=== PATIENT | female | born 1980 | race Two or more races ===

== ENCOUNTER 2025-05-08 08:14 | Emergency (ER) | payer BC ==
[~2025-05-08] VITALS: Ht 160 cm; Wt 86.1 kg
--- NOTE | 2025-05-08 09:01 | ED.PDOC ---
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 COMMERCIAL History Family History Family History: Reviewed,noncontributory to illness, No family hx of Cancer, No family hx of DM, No family hx of Heart tania, No family hx of HTN, No family hx ofKidney tania, No family hx of Liver tania, No family hx of Lung tania, No family hx of Stroke Social History Smoker: Non-Smoker Alcohol: Denies ETOH Use Drugs: Denies Drug Use Lives In: Home Constitutional: denies: chills, diaphoresis, fatigue, fever, malaise, sweats, weakness, others EENTM: denies: blurred vision, double vision, ear bleeding, ear discharge, ear drainage, ear pain, ear ringing, eye pain, eye redness, hearing loss, mouth pain, mouth swelling, nasal discharge, nose bleeding, nose congestion, nose pain, photophobia, tearing, throat pain, throat swelling, voice changes, others Respiratory: denies: cough, hemoptysis, orthopnea, SOB at rest, shortness of b reath, SOB with excertion, stridor, wheezing, others Cardiovascular: denies: chest pain, dizzy spells, diaphoresis, Dyspnea on exertion, edema, irregular heart beat, left arm pain, lightheadedness, palpitations, PND, syncope, others Gastrointestinal: denies: abdomen distended, abdominal pain, blood streaked bowels, constipated, diarrhea, dysphagia, difficulty swallowing, hematemesis, melena, nausea, poor appetite, poor fluid intake, rectal bleeding, rectal pain, vomiting, others Genitourinary: denies: abnormal vagina bleeding, burning, dyspareunia, dysuria, flank pain, frequency, hematuria, incontinence, pain, , vagina discharge, urgency, others Neurological: denies: dizziness, fainting, headache, left sided numbness, left sided weakness, numbness, paresthesia, pre-existing deficit, right sided numbness, right sided weakness, seizure, speech problems, tingling, tremors, weakness, others Musculoskeletal: reports: muscle pain, neck pain; denies: back pain, gout, joint pain, joint swelling, muscle stiffness, others Integumetry: denies: bruises, change in color, change in hair/nails, dryness, laceration, lesions, lumps, rash, wounds, others Allergic/Immunocompromised: denies: Difficulty Healing, Frequent Infections, Hives, Itching, others Hematologic/Lymphatic: denies: anemia, blood clots, easy bleeding, easy bruising, swollen glands, others Endocrine: denies: excessive hunger, excessive sweating, excessive thirst, excessive urination, flushing, intolerance to cold, intolerance to heat, unexplained weight gain, unexplained weight loss, others Psychiatric: denies: anxiety, bipolar disorder, depression, hopeless, panic disorder, schizophrenia, sleepless, suicidal, others All Other Systems: Reviewed and Negative Was a procedure done? Was a procedure done?: No Back Pain Differential Dx Differential Diagnosis: Fracture, Musculoskeletal Pain, Strain X-Ray, Labs, Meds, VS Vital Signs Date Time Temp Pulse Resp B/P (MAP) Pulse Ox O2 Delivery O2 Flow Rate FiO2 05/08/25 08:28 97.8 85 17 152/90 (110) 95 97.8 X-Ray, Labs, Meds, VS Comment EXTERNAL MEDICAL RECORDS: NONE INDEPENDENT HISTORIANS: NONE SOCIAL DETERMINANTS OF HEALTH: NONE LABS ORDERED: NONE REVIEWED AND INTERPRETED RESULTS: NONE IMAGING ORDERED: NONE TREATMENTS ORDERED: NONE PATIENT'S CASE AND RESULTS HAVE BEEN DISCUSSED WITH THE ED ATTENDING PHYSICIAN AND THEY AGREE WITH MY PLAN OF CARE. I HAVE DISCUSSED IMAGING AND LAB RESULTS WITH THE PATIENT AND HAVE INSTRUCTED THE PATIENT TO FOLLOW UP WITH THEIR PCP IN 1-2 DAYS. THE PATIENT FULLY UNDERSTANDS THEIR RESULTS AND ARE AWARE THEY NEED TO FOLLOW UP WITH THEIR PCP FOR FURTHER EVALUATION IF THEIR SYMPTOMS PERSIST. Images Reviewed?: Images reviewed and evaluated by me Reevaluation 1ST: Improved Patient Education/Counseling: Diagnosis, Treatment, Need For Follow Up Family Education/Counseling: Diagnosis, Treatment, Need For Follow Up Medical Screening: No EMC Exist At This Time SEPSIS Sepsis Screen Date sepsis recognized/suspect: May 08, 2025 Time Sepsis recognized/suspect: 08 Recent Procedure: No On Antibiotic Therapy: No Respiratory Rate >20: No Heart Rate >90: No Temp<36 C (96.8 F) or >38.3 C: No SBP <90 or MAP <65 mmHG: No New Acute Mental Status Change: No Is the patient on CPAP, BIPAP,: No Vital Signs Date Time Temp Pulse Resp B/P (MAP) Pulse Ox O2 Delivery O2 Flow Rate FiO2 05/08/25 08:28 97.8 85 17 152/90 (110) 95 97.8 Critical Care Note Critical Care Time?: No Stability Stability form required: No Heart Score Heart Score: Heart Score Response (Comments) Value History N/A 0 EKG N/A 0 Age N/A 0 Risk Factors N/A 0 Troponin N/A 0 Total 0 I personally scribed for HAYLEY LEIVA ([email or web address]) on 05/08/25 at 09:00. Electronically submitted by Susie Quintana ([employer]). I personally scribed for HAYLEY LEIVA ([email or web address]) on 05/08/25 at 09:05. Electronically submitted by Susie Quintana ([employer]). HAYLEY LEIVA May 08, 2025 09:00
[2025-05-08] MEDS ORDERED: NAPR-746 PO (09:07)
[2025-05-08] MEDS ORDERED: CEPH500C PO (09:07)
--- NOTE | 2025-05-08 09:16 | ED.PDOC ---
Eye-HPI HPI Comments A 44 YEAR-OLD FEMALE PRESENTS TO THE ED WITH A CHIEF COMPLAINT OF RIGHT SIDED NECK PAIN OF X2-3 DAYS AGO. PATIENT REPORTS THAT PAIN IS A "SHOOTING" PAIN, "SHARP", WITH PAIN UPON PALPATION. PATIENT HAS NO FURTHER SYMPTOMS AT THIS TIME AND OTHERWISE DENIES VISION LOSS, DIFFICULTY SWALLOWING, FEVER, OR N/V. PATIENT IS ALERT, ORIENTED X 4, AND HAS STEADY GAIT. Chief Complaint: Neck Pain Time Seen by MD: 09:06 Primary Care Provider: GENERAL Reviewed Notes: Nurses Notes, Medications, Allergies Allergies: Coded Allergies: Erythromycin (Verified Allergy, Unknown, 05/08/25) Home Meds Active Scripts Naproxen (Naproxen) 500 Mg Tab, 500 MG PO BID, #30 TAB Prov:HAYLEY LEIVA 05/08/25 Cephalexin Monohydrate (Cephalexin) 500 Mg Cap, 2 CAP PO BID, #32 CAP Prov:HAYLEY LEIVA 05/08/25 Information Source: Patient Mode of Arrival: Ambulatory Timing: Days (X2-3) Duration: Since onset, Days Prehospital treatment: None Quality: Pain Lids: Normal Conjunctiva: Normal Cornea: Normal Pupils: Normal EOM: Normal Fundus: Normal Slit lamp exam: Normal Anterior chamber: Normal Mouth Location: Pharynx Mouth: Right (RIGHT LYMPH NODE SWELLING ), Normal Nose: Normal Sinuses: Normal Oropharynx: Normal Onset: Spontaneous Associated signs and symptoms: Other (RIGHT SIDED PAIN AND SWELLING TO THE LYMPH NODES ) Past Medical History PAST MEDICAL HISTORY: High Lipids, HTN, Thyroid Surgical History: Denies all surgeries 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 History Family History Family History: Reviewed,noncontributory to illness, No family hx of Cancer, No family hx of DM, No family hx of Heart tania, No family hx of HTN, No family hx ofKidney tania, No family hx of Liver tania, No family hx of Lung tania, No family hx of Stroke Social History Smoker: Non-Smoker Alcohol: Denies ETOH Use Drugs: Denies Drug Use Lives In: Home Constitutional: denies: chills, diaphoresis, fatigue, fever, malaise, sweats, weakness, others EENTM: reports: throat pain, others (RIGHT SIDED LYMPH NODE SWELLING/PAIN ); denies: blurred vision, double vision, ear bleeding, ear discharge, ear drainage, ear pain, ear ringing, eye pain, eye redness, hearing loss, mouth pain, mouth swelling, nasal discharge, nose bleeding, nose congestion, nose pain, photophobia, tearing, throat swelling, voice changes Respiratory: denies: cough, hemoptysis, orthopnea, SOB at rest, shortness of breath, SOB with excertion, stridor, wheezing, others Cardiovascular: denies: chest pain, dizzy spells, diaphoresis, Dyspnea on exertion, edema, irregular heart beat, left arm pain, lightheadedness, palpitations, PND, syncope, others Gastrointestinal: denies: abdomen distended, abdominal pain, blood streaked bowels, constipated, diarrhea, dysphagia, difficulty swallowing, hematemesis, melena, nausea, poor appetite, poor fluid intake, rectal bleeding, rectal pain, vomiting, others Genitourinary: denies: abnormal vagina bleeding, burning, dyspareunia, dysuria, flank pain, frequency, hematuria, incontinence, pain, , vagina discharge, urgency, others Neurological: denies: dizziness, fainting, headache, left sided numbness, left sided weakness, numbness, paresthesia, pre-existing deficit, right sided numbness, right sided weakness, seizure, speech problems, tingling, tremors, weakness, others Musculoskeletal: reports: neck pain; denies: back pain, gout, joint pain, joint swelling, muscle pain, muscle stiffness, others Integumetry: denies: bruises, change in color, change in hair/nails, dryness, laceration, lesions, lumps, rash, wounds, others Allergic/Immunocompromised: denies: Difficulty Healing, Frequent Infections, Hives, Itching, others Hematologic/Lymphatic: denies: anemia, blood clots, easy bleeding, easy bruising, swollen glands, others Endocrine: denies: excessive hunger, excessive sweating, excessive thirst, excessive urination, flushing, intolerance to cold, intolerance to heat, unexplained weight gain, unexplained weight loss, others Psychiatric: denies: anxiety, bipolar disorder, depression, hopeless, panic disorder, schizophrenia, sleepless, suicidal, others All Other Systems: Reviewed and Negative Physical Exam General Appearance: No Apparent Distress, Normal HEENT: PERRL/EOMI, Pharyngeal Erythema (TONSILLAR SWELLING, NO EXUDATES. ), TMs Normal Neck: Full Range of Motion, Lymphadenopathy (R) (TENDERNESS ON RIGHT UPPER CERVICAL LYMPH NODE, MILD SWELLING, NO REDNESS. ), Non-Tender, Normal, Normal Inspection Respiratory: Chest Non-Tender, Lungs Clear, No Accessory Muscle Use, No Respiratory Distress, Normal Breath Sounds Cardiovascular: No Edema, No JVD, No Murmur, No Gallop, Normal Peripheral Pulses, Regular Rate/Rhythm Breast Exam: Deferred Gastrointestinal: No Organomegaly, Non Tender, No Pulsatile Mass, Normal Bowel Sounds, Soft Genitalia: Deferred Pelvic: Deferred Rectal: Deferred Extremities: No calf tenderness, Normal capillary refill, Normal inspection, Normal range of motion, Non-tender, No pedal edema Musculoskeletal : Apperance: Normal Neurologic: Alert, system planning engineer II-XII nml as Tested, No Motor Deficits, Normal Affect, Normal Mood, No Sensory Deficits Cerebellar Function: Normal Reflexes: Normal Skin: Dry, Normal Color, Warm Peripheral Pulses: 2+ carotid (R), 2+ carotid (L) Lymphatic: Cervical Adenopathy (R) Was a procedure done? Was a procedure done?: No EENT DIFF Eye: Other Ear: Pharyngitis Mouth: Esophageal candidiasis, Other (SWOLLEN LYMPH NODES ) Sore Throat: Peritonsillar Abscess, Pharyngitis, Other (CERVICAL ADENDITIS ) X-Ray, Labs, Meds, VS Vital Signs Date Time Temp Pulse Resp B/P (MAP) Pulse Ox O2 Delivery O2 Flow Rate FiO2 05/08/25 09:40 98.6 68 16 137/88 (104) 95 98.6 05/08/25 08:28 97.8 85 17 152/90 (110) 95 97.8 X-Ray, Labs, Meds, VS Comment EXTERNAL MEDICAL RECORDS: NONE INDEPENDENT HISTORIANS: NONE SOCIAL DETERMINANTS OF HEALTH: NONE LABS ORDERED: NONE REVIEWED AND INTERPRETED RESULTS: NONE IMAGING ORDERED: NONE TREATMENTS ORDERED: ROCEPHIN PATIENT'S CASE AND RESULTS HAVE BEEN DISCUSSED WITH THE ED ATTENDING PHYSICIAN AND THEY AGREE WITH MY PLAN OF CARE. RX: CEPHALEXIN 500MG AND NAPROXEN I HAVE DISCUSSED THE RESULTS WITH THE PATIENT AND HAVE INSTRUCTED THE PATIENT TO FOLLOW UP WITH THEIR PCP IN 1-2 DAYS. THE PATIENT FULLY UNDERSTANDS THEIR RESULTS AND ARE AWARE THEY NEED TO FOLLOW UP WITH THEIR PCP FOR FURTHER EVALUATION IF THEIR SYMPTOMS PERSIST. Time of 1ST Reevaluation: 10:00 Reevaluation 1ST: Improved Patient Education/Counseling: Diagnosis, Treatment, Need For Follow Up Family Education/Counseling: Diagnosis, Treatment, Need For Follow Up Medical Screening: No EMC Exist At This Time SEPSIS Sepsis Screen Date sepsis recognized/suspect: May 08, 2025 Time Sepsis recognized/suspect: 08 Recent Procedure: No On Antibiotic Therapy: No Respiratory Rate >20: No Heart Rate >90: No Temp<36 C (96.8 F) or >38.3 C: No SBP <90 or MAP <65 mmHG: No New Acute Mental Status Change: No Is the patient on CPAP, BIPAP,: No Vital Signs Date Time Temp Pulse Resp B/P (MAP) Pulse Ox O2 Delivery O2 Flow Rate FiO2 05/08/25 09:40 98.6 68 16 137/88 (104) 95 98.6 05/08/25 08:28 97.8 85 17 152/90 (110) 95 97.8 Departure 1 Departure Time of Disposition: 10:00 Impression: Primary Impression: Cervical adenitis Additional Impression: Acute tonsillitis Qualified Codes: J03.90 - Acute tonsillitis, unspecified Disposition: HOME / SELF CARE / HOMELESS Condition: Stable Additional Instructions: FOLLOW-UP WITH PCP IN 1 TO 2 DAYS. TAKE MEDICATIONS PRESCRIBED. RETURN TO ED FOR ANY NEW OR WORSENING SYMPTOMS. e-Prescriptions Naproxen (Naproxen) 500 Mg Tab 500 MG PO BID, #30 TAB Prov: HAYLEY LEIVA 05/08/25 Cephalexin Monohydrate (Cephalexin) 500 Mg Cap 2 CAP PO BID, #32 CAP Prov: HAYLEY LEIVA 05/08/25 Discharged With: Self Critical Care Note Critical Care Time?: No Stability Stability form required: No Heart Score Heart Score: Heart Score Response (Comments) Value History N/A 0 EKG N/A 0 Age N/A 0 Risk Factors N/A 0 Troponin N/A 0 Total 0 I personally scribed for HAYLEY LEIVA ([email or web address]) on 05/08/25 at 09:16. Electronically submitted by Susie LizarragaQubole). HAYLEY LEIVA May 08, 2025 09:16
[2025-05-08 09:40] VITALS: BP 137/88; PULSE 68; RESP 16; TEMP 98.6; O2SAT 94
[2025-05-08] MEDS: cefTRIAXone SOD 1,000 MG VL IM ONE (09:44)
[2025-05-09] MEDS ORDERED: LIDO3CRE16 EX (23:53)
[2025-05-09] MEDS ORDERED: GABA-1308 PO (23:53)
[2025-05-09] MEDS ORDERED: VALA1TAB PO (23:53)
== END 2025-05-08 10:09 | disposition home or self-care (01) ==
LOC: ER 08:14
DX: I88.9 Nonspecific lymphadenitis, unspecified (principal); J03.90 Acute tonsillitis, unspecified; I10 Essential (primary) hypertension; Z88.1 Allergy status to other antibiotic agents
CPT/HCPCS: 96372; 99283; J0696

== ENCOUNTER 2025-05-09 22:17 | Emergency (ER) | payer BC ==
[~2025-05-09] VITALS: Ht 160 cm; Wt 87.1 kg
[~2025-05-09 22:17] MED LIST: CEPH500C PO; NAPR-746 PO
[2025-05-09 22:28] VITALS: BP 166/96; PULSE 82; RESP 18; TEMP 98.6; O2SAT 95
--- NOTE | 2025-05-09 23:34 | ED.PDOC ---
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 Family History Family History: Reviewed,noncontributory to illness, No family hx of Cancer, No family hx of DM, No family hx of Heart tania, No family hx of HTN, No family hx ofKidney tania, No family hx of Liver tania, No family hx of Lung tania, No family hx of Stroke Social History Smoker: Non-Smoker Alcohol: Denies ETOH Use Drugs: Denies Drug Use Lives In: Home X-Ray, Labs, Meds, VS Vital Signs Date Time Temp Pulse Resp B/P (MAP) Pulse Ox O2 Delivery O2 Flow Rate FiO2 05/09/25 22:28 98.6 82 18 166/96 (119) 95 98.6 SEPSIS Sepsis Screen Date sepsis recognized/suspect: May 09, 2025 Time Sepsis recognized/suspect: 2226 Recent Procedure: No On Antibiotic Therapy: No Respiratory Rate >20: No Heart Rate >90: No Temp<36 C (96.8 F) or >38.3 C: No SBP <90 or MAP <65 mmHG: No New Acute Mental Status Change: No Is the patient on CPAP, BIPAP,: No Vital Signs Date Time Temp Pulse Resp B/P (MAP) Pulse Ox O2 Delivery O2 Flow Rate FiO2 05/09/25 22:28 98.6 82 18 166/96 (119) 95 98.6 Departure 1 Departure Time of Disposition: 23:47 Impression: Primary Impression: Shingles (herpes zoster) polyneuropathy Disposition: HOME / SELF CARE / HOMELESS Condition: Stable e-Prescriptions Gabapentin (Gabapentin) 100 Mg Cap 1 CAP PO TID PRN for 5 Days, #15 CAP Prov: JOHN OWEN 05/09/25 Lidocaine Hcl (Lidocaine) 3 % Cre 3 % EX QID PRN for 5 Days, #15 GRAMS Prov: JOHN OWNE 05/09/25 Valacyclovir Hcl (Valtrex) 1 Gm Tab 1 TAB PO TID for 7 Days, #21 TAB Prov: JOHN OWEN 05/09/25 Discharged With: Self JOHN OWEN May 09, 2025 23:34
[2025-05-09] MEDS ORDERED: KETOROLAC TROMETH 60MG/2ML VIAL IM ONE (23:45)
[2025-05-09] MEDS ORDERED: GABA-1308 PO (23:53)
[2025-05-09] MEDS ORDERED: VALA1TAB PO (23:53)
[2025-05-09] MEDS ORDERED: LIDO3CRE16 EX (23:53)
[2025-05-10] MEDS ORDERED: GABA-1308 PO (13:22)
== END 2025-05-10 01:36 | disposition home or self-care (01) ==
LOC: ER 22:17
DX: B02.23 Postherpetic polyneuropathy (principal); I10 Essential (primary) hypertension; E78.5 Hyperlipidemia, unspecified; Z79.899 Other long term (current) drug therapy; Z88.1 Allergy status to other antibiotic agents